=== PATIENT | male | born 1980 | race Caucasian/White ===

== ENCOUNTER 2022-08-03 14:12 | Emergency (ER) | payer OTHER ==
[~2022-08-03] VITALS: Ht 170.2 cm; Wt 97.5 kg
[2022-08-03] MEDS ORDERED: GUAI-671 PO (15:25)
[2022-08-03] MEDS ORDERED: LORA10TA7 PO (15:25)
[2022-08-03] MEDS ORDERED: MOME17SP BNOSTRILS (15:25)
[2022-08-03 15:40] VITALS: BP 138/68
== END 2022-08-03 15:42 | disposition home or self-care (01) ==
LOC: ER 14:12
DX: J01.90 Acute sinusitis, unspecified (principal)
CPT/HCPCS: 71045; A4663